=== PATIENT | female | born 1950 | race Caucasian/White ===

== ENCOUNTER → 2018-02-10 10:36 | Outpatient (CLI) | payer MEDICARE, OTHER, SELFPAY ==
[2018-02-10 11:39] LABS: Hemoglobin A1c 9.1 % (4.2-6.3)
== END ==
PROVIDERS: Family Provider Family Medicine; PCP Family Medicine; Visit Provider Nurse Practitioner
DX: E11.9 Type 2 diabetes mellitus without complications (principal)
CPT/HCPCS: 36415; 83036

== ENCOUNTER → 2018-09-14 11:06 | Outpatient (CLI) | payer MEDICARE, OTHER, SELFPAY ==
[2018-09-14 12:31] LABS: Hematocrit 39.8 % (37-47); Mean Corp Hgb Conc 32.7 g/gl (32-36); Mean Corpuscular Hgb 29.5 pg (27.0-32.0); Mean Corpuscular Volume 90.2 fL (81-99); Mean Platelet Vol. 9.9 fl (6.2-12.0); Platelet Count 222 K/mm3 (150-450); RBC Distribution Width CV 12.7 % (11.6-14.6); RBC Distribution Width SD 41.7 fl (35.1-43.9); Red Blood Count 4.41 M/mm3 (4.2-5.4)
[2018-09-14 12:38] LABS: Scan Indicated on CBC? Y/N NO
[2018-09-14 13:14] LABS: Vitamin D,25 Hydroxy 47.1 ng/mL (29.95-100.01)
[2018-09-14 13:15] LABS: AST(SGOT) 24 U/L (15-37); Alanine Aminotransfer ALT/SGPT 34 U/L (13-56); Albumin, Serum 3.7 g/dL (3.2-5.0); Alkaline Phosphatase 87 U/L (45-117); Anion Gap 11 (5-15); BUN 15 mg/dL (7-18); BUN/Creat Ratio 15.9 RATIO (10-20); Calcium,Total 8.9 mg/dL (8.5-10.1); Chloride 104 mmol/L (98-107); Creatinine, Serum 0.94 mg/dL (0.55-1.02); EST Glomerular Filtration Rate 63 mL/min (>60); Est Glom Filt Rate - Afr Amer 77 mL/min (>60); Globulin 3.7 g/dL (2.2-4.2); Glucose 179 mg/dL (74-106); Potassium 4.1 mmol/L (3.5-5.1); Protein, Total 7.4 g/dL (6.4-8.2); Sodium Level 140 mmol/L (136-145); Thyroid Stim Hormone (TSH) 2.23 uIU/mL (0.358-3.74)
== END ==
PROVIDERS: Family Provider Family Medicine; PCP Family Medicine; Referring Provider Surgery Surgical Oncology; Visit Provider Surgery Surgical Oncology
DX: E03.9 Hypothyroidism, unspecified (principal); C50.812 Malignant neoplasm of overlapping sites of left female breast; E55.9 Vitamin D deficiency, unspecified
CPT/HCPCS: 36415; 80053; 82306; 84443; 85027; 86300

== ENCOUNTER → 2019-09-19 10:15 | Outpatient (CLI) | payer MEDICARE, OTHER, SELFPAY ==
[2019-08-18 16:02] VITALS: BMI 27.1
[2019-09-19 11:10] LABS: Hematocrit 40.6 % (37-47); Hemoglobin 13.6 g/dL (12.0-15.0); Mean Corp Hgb Conc 33.5 g/dL (32-36); Mean Corpuscular Hgb 30.1 pg (27.0-32.0); Mean Corpuscular Volume 89.8 fL (81-99); Mean Platelet Vol. 9.5 fl (6.2-12.0); Platelet Count 222 K/mm3 (150-450); RBC Distribution Width CV 12.5 % (11.6-14.6); RBC Distribution Width SD 41.1 fl (35.1-43.9); Red Blood Count 4.52 M/mm3 (4.2-5.4); White Blood Count 4.9 K/mm3 (4.4-11.0)
[2019-09-19 11:39] LABS: AST(SGOT) 22 U/L (15-37); Alanine Aminotransfer ALT/SGPT 29 U/L (13-56); Albumin, Serum 3.6 g/dL (3.2-5.0); Alkaline Phosphatase 86 U/L (45-117); Anion Gap 5 (5-15); BUN 17 mg/dL (7-18); BUN/Creat Ratio 18.6 RATIO (10-20); Calcium,Total 9.1 mg/dL (8.5-10.1); Chloride 103 mmol/L (98-107); Creatinine, Serum 0.91 mg/dL (0.55-1.02); EST Glomerular Filtration Rate 65 mL/min (>60); Est Glom Filt Rate - Afr Amer 79 mL/min (>60); Globulin 3.6 g/dL (2.2-4.2); Glucose 126 mg/dL (74-106); Potassium 3.9 mmol/L (3.5-5.1); Protein, Total 7.2 g/dL (6.4-8.2); Sodium Level 136 mmol/L (136-145)
[2019-09-19 11:42] LABS: Vitamin D,25 Hydroxy 47.2 ng/mL (29.95-100.01)
[2019-09-21 13:56] LABS: CA 27.29 9.8 U/mL (0.0-38.6)
== END ==
PROVIDERS: PCP Family Medicine; Referring Provider Surgery Surgical Oncology; Visit Provider Surgery Surgical Oncology
DX: C50.812 Malignant neoplasm of overlapping sites of left female breast (principal); E55.9 Vitamin D deficiency, unspecified
CPT/HCPCS: 36415; 80053; 82306; 85027; 86300

== ENCOUNTER → 2020-10-08 10:46 | Outpatient (CLI) | payer MEDICARE, OTHER, SELFPAY ==
[2020-06-21 10:44] VITALS: BMI 28.1
[2020-10-08 12:50] LABS: Hematocrit 38.9 % (37-47); Hemoglobin 12.9 g/dL (12.0-15.0); Mean Corp Hgb Conc 33.2 g/dL (32-36); Mean Corpuscular Hgb 29.8 pg (27.0-32.0); Mean Corpuscular Volume 89.8 fL (81-99); Mean Platelet Vol. 10.2 fl (6.2-12.0); Platelet Count 257 K/mm3 (150-450); RBC Distribution Width SD 39.8 fl (35.1-43.9); Red Blood Count 4.33 M/mm3 (4.2-5.4); White Blood Count 4.7 K/mm3 (4.4-11.0)
[2020-10-08 13:19] LABS: Vitamin D,25 Hydroxy 35.6 ng/mL
[2020-10-08 13:20] LABS: ALB/GLOB Ratio 0.9 RATIO (0.9-2.4); AST(SGOT) 16 U/L (15-37); Alanine Aminotransfer ALT/SGPT 25 U/L (13-56); Albumin, Serum 3.5 g/dL (3.2-5.0); Alkaline Phosphatase 98 U/L (45-117); Anion Gap 6 (5-15); BUN 15 mg/dL (7-18); BUN/Creat Ratio 15.4 RATIO (10-20); Calcium,Total 8.8 mg/dL (8.5-10.1); Chloride 106 mmol/L (98-107); Creatinine, Serum 0.98 mg/dL (0.55-1.02); EST Glomerular Filtration Rate 60 mL/min (>60); Est Glom Filt Rate - Afr Amer 73 mL/min (>60); Globulin 3.7 g/dL (2.2-4.2); Glucose 222 mg/dL (74-106); Protein, Total 7.2 g/dL (6.4-8.2); Sodium Level 140 mmol/L (136-145)
[2020-10-09 08:15] LABS: CA 27.29 11.6 U/mL (0.0-38.6)
== END ==
PROVIDERS: PCP Family Medicine; Referring Provider Surgery Surgical Oncology; Visit Provider Surgery Surgical Oncology
DX: C50.812 Malignant neoplasm of overlapping sites of left female breast (principal); E55.9 Vitamin D deficiency, unspecified
CPT/HCPCS: 36415; 80053; 82306; 82378; 85027; 86300

== ENCOUNTER → 2021-05-22 08:52 | Outpatient (CLI) | payer MEDICARE, OTHER, SELFPAY ==
[2021-05-22 10:39] LABS: ALB/GLOB Ratio 0.9 RATIO (0.9-2.4); AST(SGOT) 18 U/L (15-37); Alanine Aminotransfer ALT/SGPT 24 U/L (13-56); Albumin, Serum 3.5 g/dL (3.2-5.0); Alkaline Phosphatase 80 U/L (45-117); Anion Gap 7 (5-15); BUN 20 mg/dL (7-18); BUN/Creat Ratio 21.3 RATIO (10-20); Calcium,Total 9.3 mg/dL (8.5-10.1); Chloride 103 mmol/L (98-107); Cholesterol 247 mg/dL (200); Creatinine, Serum 0.94 mg/dL (0.55-1.02); EST Glomerular Filtration Rate 63 mL/min (>60); Est Glom Filt Rate - Afr Amer 76 mL/min (>60); Globulin 3.9 g/dL (2.2-4.2); Glucose 82 mg/dL (74-106); High Density Lipoprotein 51 mg/dL; Potassium 3.9 mmol/L (3.5-5.1); Protein, Total 7.4 g/dL (6.4-8.2); Sodium Level 139 mmol/L (136-145); Triglycerides 234 mg/dL; Very Low Density Lipoprotein 47 mg/dL (5-40)
[2021-05-22 11:02] LABS: Vitamin B12 1259 pg/mL (211-911); Vitamin D,25 Hydroxy 47.5 ng/mL
== END ==
PROVIDERS: PCP Family Medicine
DX: E03.9 Hypothyroidism, unspecified (principal); E78.5 Hyperlipidemia, unspecified; E55.9 Vitamin D deficiency, unspecified; E53.8 Deficiency of other specified B group vitamins
CPT/HCPCS: 36415; 80053; 80061; 82306; 82607; 84443

== ENCOUNTER 2021-09-06 10:17 | Outpatient (CLI) | payer MEDICARE, OTHER, SELFPAY ==
[2021-09-06 12:56] LABS: Microalbumin,Random Urine 15.4 mg/L (NO RANGE EST.)
== END 2021-09-06 23:59 | disposition short-term general hospital (02) ==
LOC: LABSPEC 10:18
PROVIDERS: PCP Family Medicine; Referring Provider Internal Medicine Endocrinology, Diabetes & Metabolism; Visit Provider Internal Medicine Endocrinology, Diabetes & Metabolism
DX: E11.65 Type 2 diabetes mellitus with hyperglycemia (principal); Z79.4 Long term (current) use of insulin
CPT/HCPCS: 82043; 82570

== ENCOUNTER → 2021-10-10 09:45 | Outpatient (CLI) | payer MEDICARE, OTHER, SELFPAY ==
[2021-10-10 12:11] LABS: Absolute Lymphocyte Count 1.76 X10^3/uL (0.83-4.51); Basophil# 0.04 X10^3/uL; Basophil% 0.5 % (0-1); Eosinophil# 0.08 X10^3/uL; Eosinophils% 1.1 % (0-5); Hematocrit 41.9 % (37-47); Hemoglobin 13.8 g/dL (12.0-15.0); Lymphocyte # 1.76 X10^3/ul (0.83-4.51); Mean Corp Hgb Conc 32.9 g/dL (32-36); Mean Corpuscular Hgb 29.1 pg (27.0-32.0); Mean Corpuscular Volume 88.4 fL (81-99); Mean Platelet Vol. 10.2 fl (6.2-12.0); Monocyte# 0.45 X10^3/uL; Monocyte% 6.1 % (0-10); NRBC Flagged by Analyzer 0 % (0-5); Neutrophil # 4.97 X10^3/uL (2.7-7.7); Platelet Count 280 K/mm3 (150-450); RBC Distribution Width CV 12.4 % (11.6-14.6); RBC Distribution Width SD 40.3 fl (35.1-43.9); Red Blood Count 4.74 M/mm3 (4.2-5.4); White Blood Count 7.3 K/mm3 (4.4-11.0)
[2021-10-10 12:26] LABS: Vitamin D,25 Hydroxy 43.4 ng/mL
[2021-10-10 12:27] LABS: ALB/GLOB Ratio 0.9 RATIO (0.9-2.4); AST(SGOT) 18 U/L (15-37); Alanine Aminotransfer ALT/SGPT 24 U/L (13-56); Albumin, Serum 3.7 g/dL (3.2-5.0); Alkaline Phosphatase 98 U/L (45-117); Anion Gap 5 (5-15); BUN 18 mg/dL (7-18); BUN/Creat Ratio 18.8 RATIO (10-20); Calcium,Total 9.7 mg/dL (8.5-10.1); Chloride 103 mmol/L (98-107); Creatinine, Serum 0.96 mg/dL (0.55-1.02); EST Glomerular Filtration Rate 61 mL/min (>60); Est Glom Filt Rate - Afr Amer 74 mL/min (>60); Glucose 120 mg/dL (74-106); Potassium 3.8 mmol/L (3.5-5.1); Protein, Total 7.7 g/dL (6.4-8.2); Sodium Level 137 mmol/L (136-145)
[2021-10-11 09:07] LABS: CA 15-3 6.8 U/mL (0.0-25.0); Carcinoembryonic Antigen 0.7 ng/mL (0.0-4.7)
== END ==
PROVIDERS: PCP Family Medicine
DX: R53.83 Other fatigue (principal); C50.812 Malignant neoplasm of overlapping sites of left female breast; E55.9 Vitamin D deficiency, unspecified; M85.80 Other specified disorders of bone density and structure, unspecified site
CPT/HCPCS: 36415; 80053; 82306; 82378; 85025; 86300

== ENCOUNTER → 2022-09-23 | Outpatient (CLI) | payer MEDICARE, OTHER, SELFPAY ==
--- NOTE | 2022-09-23 15:07 | BI_ITS ---
MAMMOGRAPHY - BILATERAL SCREENING REASON FOR EXAM: Female, 72 years old. Routine annual screening examination. PERTINENT HISTORY: Personal history of breast cancer. Prior lumpectomy and radiation treatment. TECHNIQUE: Digital bilateral breast bradley (3D mammographic acquisition) in the CC and MLO projections. 2-D mediolateral oblique (MLO) and craniocaudad (CC) views of both breasts were obtained. CAD: Full Field Digital Mammography with Computer Added Detection was performed. COMPARISON: Comparison is made with prior outside examination dated 10/10/2021. FINDINGS: Breast Composition: The breasts are heterogeneously dense, which may obscure small masses. There are no dominant masses or suspicious calcifications. The patient is status post lumpectomy with postoperative changes in the deep inferior medial aspect of the left breast. There is overlying skin thickening. Dense dystrophic calcification is seen at that site. A surgical clip is seen in the left axillary region. Stable benign-appearing right axillary lymph nodes. No other significant abnormalities are identified. There has been no significant change since the prior study. BI/SCRN MAMM (CAD)W/BRADLEY BILAT IMPRESSION: Stable bilateral screening mammogram. Yearly follow-up mammogram recommended. (A) ASSESSMENT CATEGORY: BIRADS Category 2: Benign. A letter regarding these results will be sent to the patient by the facility within 30 days. Approximately 10% of breast cancers are not detected by mammography. A normal mammogram should not delay biopsy of a clinically suspicious abnormality. [id number] Electronically Signed: Anton Maldonado MD at 15:44 EST ,
--- NOTE | 2022-09-23 15:28 | BD_ITS ---
STUDY: DUAL ENERGY X-RAY ABSORPTIOMETRY / DXA REASON FOR EXAM: Female, 72 years old. M85.89 TECHNIQUE: Bone Mineral Density (BMD) measurements of lumbar spine and bilateral hips were obtained. COMPARISON: None. FINDINGS: Lumbar Spine (L1-L4): g/cm2 (0.857) / T-score (-1.6) / Z-score (0.5) Findings are suggestive of osteopenia with a moderate fracture risk. Left Femur Total: g/cm2 (0.921) / T-score (-0.2) / Z-score (1.3) Left Femoral Neck: g/cm2 (0.819) / T-score (-0.3) / Z-score (1.5) Right Femur Total: g/cm2 (0.952) / T-score (0.1) / Z-score (1.6) Right Femoral Neck: g/cm2 (0.877) / T-score (0.2) / Z-score (2.0) BD/Dexa Bone Density Study IMPRESSION: The patient is considered osteopenic as outlined below according to World Manuel Organization (WHO) criteria with a moderate fracture risk. Reference Information: The T-score is the number of standard deviations above or below the standard which is normal for young adults at their peak bone mineral density. The World Health Organization (WHO) interprets the T-scores as follows: Above -1 Normal bone density Between -1 and -2.5 Osteopenia Equal to / or below -2.5 Osteoporosis As a practical clinical guideline, osteopenia may be graded as follows: Mild -1 through -1.5 Moderate -1.6 through -2.0 Severe -2.1 through -2.4 The Z-score is the number of standard deviations above or below age-matched controls. A Z-score of less than -1.5 would be considered abnormal. References: 1. NIH Osteoporosis and Related Bone Diseases www osteo.org 2. International Society for Clinical Densitometry www iscd.org 3. National Osteoporosis Foundation www nof.org Electronically Signed: Anton Maldonado MD at 10:47 EST ,
[2022-09-23 16:20] LABS: Hematocrit 41.8 % (37-47); Hemoglobin 13.6 g/dL (12.0-15.0); Mean Corp Hgb Conc 32.5 g/dL (32-36); Mean Corpuscular Hgb 29.6 pg (27.0-32.0); Mean Corpuscular Volume 91.1 fL (81-99); Mean Platelet Vol. 9.8 fl (6.2-12.0); Platelet Count 278 K/mm3 (150-450); RBC Distribution Width CV 12.7 % (11.6-14.6); RBC Distribution Width SD 41.9 fl (35.1-43.9); Red Blood Count 4.59 M/mm3 (4.2-5.4); White Blood Count 6.7 K/mm3 (4.4-11.0)
[2022-09-23 16:40] LABS: Microalbumin,Random Urine 15.3 mg/L (NO RANGE EST.); Microalbumin:Creatinine Ratio 8.1 mg/g CRE (<30 mg/g CRE)
[2022-09-23 16:45] LABS: AST(SGOT) 20 U/L (15-37); Alanine Aminotransfer ALT/SGPT 28 U/L (13-56); Alkaline Phosphatase 86 U/L (45-117); Anion Gap 7 (5-15); BUN 17 mg/dL (7-18); BUN/Creat Ratio 18.1 RATIO (10-20); Calcium,Total 9.3 mg/dL (8.5-10.1); Chloride 106 mmol/L (98-107); Creatinine, Serum 0.94 mg/dL (0.55-1.02); EST Glomerular Filtration Rate 63 mL/min (>60); Est Glom Filt Rate - Afr Amer 76 mL/min (>60); Globulin 3.9 g/dL (2.2-4.2); Glucose 109 mg/dL (74-106); Potassium 3.8 mmol/L (3.5-5.1); Protein, Total 7.9 g/dL (6.4-8.2); Sodium Level 140 mmol/L (136-145); T4 Free Direct 1.25 ng/dL (0.76-1.46); Thyroid Stim Hormone (TSH) 1.07 uIU/mL (0.358-3.74)
[2022-09-23 17:09] LABS: Vitamin D,25 Hydroxy 42.9 ng/mL
[2022-09-25 19:39] LABS: CA 27.29 12.6 U/mL (0.0-38.6)
== END | disposition home or self-care (01) ==
PROVIDERS: Internal Medicine Endocrinology, Diabetes & Metabolism; Referring Provider Surgery Surgical Oncology; Visit Provider Surgery Surgical Oncology
DX: Z12.31 Encounter for screening mammogram for malignant neoplasm of breast (principal); E11.65 Type 2 diabetes mellitus with hyperglycemia; C50.812 Malignant neoplasm of overlapping sites of left female breast; Z79.4 Long term (current) use of insulin; Z13.820 Encounter for screening for osteoporosis; M85.80 Other specified disorders of bone density and structure, unspecified site; Z79.811 Long term (current) use of aromatase inhibitors; E78.2 Mixed hyperlipidemia; E66.3 Overweight; E03.8 Other specified hypothyroidism; E06.3 Autoimmune thyroiditis; I10 Essential (primary) hypertension; E55.9 Vitamin D deficiency, unspecified
CPT/HCPCS: 36415; 77063; 77067; 77080; 80053; 82043; 82306; 82570; 84439; 84443; 85027; 86300

== ENCOUNTER → 2023-10-07 | Outpatient (CLI) | payer MEDICARE, OTHER, SELFPAY ==
--- NOTE | 2023-10-07 08:11 | BI_ITS ---
MAMMOGRAPHY - BILATERAL SCREENING REASON FOR EXAM: Female, 73 years old. Routine annual screening examination. PERTINENT HISTORY: Personal history of breast cancer. Prior left lumpectomy. TECHNIQUE: Digital bilateral breast bradley (3D mammographic acquisition) in the CC and MLO projections. 2-D mediolateral oblique (MLO) and craniocaudad (CC) views of both breasts were obtained. CAD: Full Field Digital Mammography with Computer Added Detection was performed. COMPARISON: Comparison is made with prior study dated September 23, 2022. FINDINGS: Breast Composition: There are scattered areas of fibroglandular density. There are no dominant masses or suspicious calcifications. The patient is status post lumpectomy in the deep inferior central portion of the left breast with resultant postoperative changes and dystrophic calcification. A tissue clip marker is seen in the left axillary region. Stable fat-containing right axillary lymph nodes. No other significant abnormalities are identified. There has been no significant change since the prior study. BI/SCRN MAMM (CAD)W/BRADLEY BILAT IMPRESSION: Stable bilateral screening mammogram. Yearly follow-up mammogram recommended. (A) ASSESSMENT CATEGORY: BIRADS Category 2: Benign. A letter regarding these results will be sent to the patient by the facility within 30 days. Approximately 10% of breast cancers are not detected by mammography. A normal mammogram should not delay biopsy of a clinically suspicious abnormality. [id number] Electronically Signed: Anton Maldonado MD at 9:18 EST ,
--- OUTSIDE RECORDS SUMMARY | 2023-10-07 08:51 | XMS RPT_ITS | CCD ---
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 including mammogram, bone density, and labs. Patient denies any pain today. Reports that she has completed 10 years of Letrozole. Remains on her calcium with vitamin D. No other concerns voiced at this time. Surgical Oncology Clinic Note Patient: Shannan Gonzalez Sex: female Primary Care Physician: Noemi Gómez Reason for Visit: Chief Complaint Patient presents with Follow-up Left breast cancer, Tree's thyroiditis, osteopenia History of Present Illness: ANNUAL VISIT BREAST CA 2007 Review of Systems: Review of Systems - Oncology Past Medical History: Past Medical History: Diagnosis Date Breast cancer 2007 left Diabetes Tree's thyroiditis 2014 HTN (hypertension) Hyperlipidemia Hypothyroidism Obesity Osteopenia Vitamin D deficiency Past Social History: Past Surgical History: Past Surgical History: Procedure Laterality Date BREAST LUMPECTOMY Left 11/2007 Current Medications: Current Outpatient Medications Medication Sig aspirin 81 MG Chew Tab chewable tablet Chew 1 tablet daily. Calcium Carbonate-Vitamin D (CALTRATE 600+D PO) Take 1 tablet by mouth daily. Coenzyme Q10 (CoQ10) 100 MG capsule Take 1 capsule by mouth daily. cyanocobalamin 100 MCG tablet Take 10 tablets by mouth daily. gliMEPIride 4 MG tablet Take 1 tablet by mouth daily every morning. hydroCHLOROthiazide 25 MG tablet Take 1 tablet by mouth daily. Insulin Degludec (TRESIBA FLEXTOUCH SC) Inject 24 Units under the skin at bedtime. Insulin Lispro 100 UNIT/ML vial Inject 14 Units under the skin 3 times daily (take before meals). Levothyroxine 75 MCG tablet Take 1 tablet by mouth every morning before breakfast. Lisinopril 20 MG tablet Take 1 tablet by mouth daily. metformin-XR 750 MG Tab SR 24 HR tablet Take 1 tablet by mouth 3 (three) times a day. Rosuvastatin 10 MG tablet Take 1 tablet by mouth daily. Insulin Glargine (BASAGLAR KWIKPEN SC) Inject 34 Units under the skin daily. (Patient not taking: Reported on 12/31/2022) lovastatin 20 MG tablet Take 1 tablet by mouth every evening at 6 PM. One every other day (Patient not taking: Reported on 12/31/2022) Physical Exam: BP 146/81 (BP Location: Right arm, BP Position: Sitting) Pulse 75 Temp 98.1 F (36.7 C) (Infrared) Resp 14 Ht 1.575 m (5' 2 ) Wt 72.1 kg (159 lb) SpO2 97% BMI 29.08 kg/m CONSTITUTIONAL: WD,WN, NAD. Alert and oriented. Grossly neurologically intact. EYES: EOMI, lids/conjunctivae without masses or ulcerations. Sclera anicteric. NECK: Symmetric. Trachea midline. No masses. Thyroid- no enlargement or tenderness. No lymphadenopathy of cervical or clavicular region. AXILLAE: No masses or skin changes. Nontender. No lymphadenopathy RESPIRATORY: Inspection: Expands fully and symmetrically with deep inspiration Effort: No intercostal retractions or use of accessory muscles of respiration CARDIOVASCULAR: Vascular: No peripheral edema or varicosities. No JVD. ABDOMEN: Abdomen: No masses, tenderness, or hernia. Liver & spleen- no enlargement or masses. MUSCULOSKELETAL: Gait& station normal. No clubbing, cyanosis, or joint inflammation. No arm edema. SKIN: No rashes, lesions or ulcers. No indurations or subcutaneous nodules. NEUROLOGIC: No sensory or motor deficits. Normal cerebellar function. Cranial nerves intact. BREASTS: RIGHT NL, LEFT FAT NECROSIS W/ DISTORTION 6:00 STABLE, NO ADENOPATHY Imaging: Reviewed 10/09 BILAT MAMMO BIRADS 2 BONE DENSITY 10/09 -1.6 Laboratory Data: Reviewed 10/09 CBC NL, GLU 109, COMP NL, CA 27.29 12.6, VIT D 42 Pathology: Reviewed 2007 LEFT BREAST IDC T1C N0 +/+/- BCI HIGH/HIGH 11/2014 HASHIMOTOS THYROIDITIS RT LOBE Assessment and Plan: 1. REMOTE HX LEFT BREAST CA, BRANDEN 2. OSTEOPENIA, STABLE 3. VIT D 40'S PRN HERE NEEDS ANNUAL MAMMOS, Q2YR BONE DENSITY ADVISED TO INCREASE VIT D AND RESISTANCE EXERCISES Nancy Wang [place] [address] [place] [id number] . documented in this encounter [place] [employer] Work Phone: Instructions 12-31-2022 Patient Instructions Note Date & Type Note Facility 12-31-2022 Instructions Belkys Irvin RN - 12/31/2022 1:30 PM EDT Return as needed. Thank you, Belkys Irvin RN [phone] documented in this encounter [facility] [employer] Phone: Progress note 11-12-2021 Note Date & Type Note Facility 11-12-2021 Note HNO ID: [id number] Author: RT French(R) Service: ? Author Type: Technologist Type: Progress Notes Filed: 11/12/2021 1:26 PM Note Text: Radiology Service Progress Note PATIENT NAME: Shannan Gonzalez DATE OF SERVICE: November 12, 2021 TIME: 1:26 PM PATIENT IDENTITY VERIFICATION COMPLETED USING TWO (2) IDENTIFIERS: Name and Date of confirmed by patient verbally. FALL SCREENING: Has the patient had 2 falls in the last year or 1 fall with injury or currently using an Ambulatory Assistive Device (Walker, Cane, Wheelchair, Crutches, etc.)? No PATIENT GENDER DATA: Female. status: : No status: NO. PATIENT RELEVANT IMPLANT DATA REVIEWED: Not Applicable RADIOLOGY DEPARTMENT: Mammography PERIPHERAL IV DATA: Not applicable SIGNED BY: RT French(R) November 12, 2021 1:26 PM [facility] History of Present illness Narrative 11-12-2021 RT French(R) - 11/12/2021 1:30 PM EDT Note Date & Type Note Facility 11-12-2021 History of Presen t illness Narrative Radiology Service Progress Note PATIENT NAME: Shannan Gonzalez DATE OF SERVICE: November 12, 2021 TIME: 1:26 PM PATIENT IDENTITY VERIFICATION COMPLETED USING TWO (2) IDENTIFIERS: Name and Date of confirmed by patient verbally. FALL SCREENING: Has the patient had 2 falls in the last year or 1 fall with injury or currently using an Ambulatory Assistive Device (Walker, Cane, Wheelchair, Crutches, etc.)? No PATIENT GENDER DATA: Female. status: : No status: NO. PATIENT RELEVANT IMPLANT DATA REVIEWED: Not Applicable RADIOLOGY DEPARTMENT: Mammography PERIPHERAL IV DATA: Not applicable SIGNED BY: RT French(R) November 12, 2021 1:26 PM documented in this encounter [facility] Progress note 10-10-2021 Note Date & Type Note Facility 10-10-2021 Note HNO ID: [id number] Author: Adama Farooq Service: ? Author Type: Brand Marketing Manager Type: Progress Notes Filed: 10/10/2021 9:33 AM Note Text: Radiology Service Progress Note PATIENT NAME: Shannan Gonzalez DATE OF SERVICE: October 10, 2021 TIME: 9:02 AM PATIENT IDENTITY VERIFICATION COMPLETED USING TWO (2) IDENTIFIERS: Name and Date of confirmed by patient verbally. FALL SCREENING: Has the patient had 2 falls in the last year or 1 fall with injury or currently using an Ambulatory Assistive Device (Walker, Cane, Wheelchair, Crutches, etc.)? No PATIENT GENDER DATA: Female. status: : No status: NO. PATIENT RELEVANT IMPLANT DATA REVIEWED: Not Applicable RADIOLOGY DEPARTMENT: Mammography PERIPHERAL IV DATA: Not applicable SIGNED BY: Adama Farooq October 10, 2021 9:02 AM [facility] History of Past illness Narrative 08-05-2017 Note Date & Type Note Facility documented as of this encounter (statuses as of 11/13/2021) [facility] History of Past illness Narrative 08-05-2017 Note Date & Type Note Facility documented as of this encounter (statuses as of 11/18/2021) [facility] History of Past illness Narrative 08-05-2017 Note Date & Type Note Facility documented as of this encounter (statuses as of 05/15/2022) [facility] Evaluation note Note Date & Type Note Facility documented in this encounter [employer] Phone: Summary Purpose Family History Diabetes Mellitus Status:Active Comments:Pater nal Grandmother. Heart Disease Status:Active Comments:Mother. Father. Hypertension Status:Active Comments:Mother. Father. Osteoarthritis Status:Active Comments:Father. Osteoporosis Status:Active Comments:Mother. 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 Advance Directive(s) 07/18/2013 7:19 AM Additional Source Comments INFORMATION SOURCE (unrecogn ized section and content) DATE CREATED AUTHOR AUTHOR'S ORGANIZ ATION 05/27/2019 [facility] DATE CREATED AUTHOR AUTHOR'S ORGANIZ ATION 05/19/2022 [facility] DATE CREATED AUTHOR AUTHOR'S ORGANIZ ATION 06/01/2023 [facility] Source Comments (unrecognize d section and content) In the event this informatio n is protected by the Federal Confidentiality of Alcohol and Drug Abuse Patient Records regulations: The Federal rules restrict any use of the information to criminally investigate or prosecute any alcohol or drug abuse patient.[facility] the event this information is protected by the Federal Confidentiality of Alcohol and Drug Abuse Patient Records regulations: The Federal rules restrict any use of the information to criminally investigate or prosecute any alcohol or drug abuse patient.[facility] the event this information is protected by the Federal Confidentiality of Alcohol and Drug Abuse Patient Records regulations: The Federal rules restrict any use of the information to criminally investigate or prosecute any alcohol or drug abuse patient.[facility] Care Teams (unrecognized sec tion and content) Home Appliance Tech Relationship Specialty Start Date End Date Naya Munoz [address] [place] [address] PCP - General 06/18/04 Home Appliance Tech Relationship Specialty Start Date End Date Naya Munoz [address] [place], [place] [id number] PCP - General 06/18/04 Home Appliance Tech Relationship Specialty Start Date End Date Noemi Gómez PA-C [address] [place] [place] [id number] PCP - General Physician Ink Technician 12/31/22 Reason for Visit (unrecogniz ed section and content) FOR RECORDS PERTAINING TO PATIENTS WHO ARE OR HAVE BEEN ENROLLED IN A CHEMICAL DEPENDENCY/SUBSTANCEABUSE PROGRAM, SOME INFORMATION MAY BE OMITTED. This clinical summary was aggregated from multiple sources. Caution should be exercised in using it in the provision of clinical care. This summary normalizes information from multiple sources, and as a consequence, information in this document may materially change the coding, format and clinical context of patient data. In addition, data may be omitted in some cases. CLINICAL DECISIONS SHOULD BE BASED ON THE PRIMARY CLINICAL RECORDS. [facility]. provides no warranty or guarantee of the accuracy or completeness of information in this document.
== END | disposition home or self-care (01) ==
LOC: OPBI 08:10
DX: Z12.31 Encounter for screening mammogram for malignant neoplasm of breast (principal); Z85.3 Personal history of malignant neoplasm of breast
CPT/HCPCS: 77063; 77067

== ENCOUNTER 2023-11-25 06:57 | Day surgery (SDC) | payer MEDICARE, OTHER, SELFPAY ==
[2023-11-25] VITALS (7 sets, daily range): BP systolic 102–134; BP diastolic 47–66; PULSE 65–77; RESP 16–17; TEMP 35.9–36.6; O2SAT 93–98; BMI 27.3
[2023-11-25] MEDS: Lactated Ringers 1,000 ML 15 ML IV (07:27)
[2023-11-25 07:33] LABS: Bedside Glucose 146 mg/dL (74-106)
--- NOTE | 2023-11-25 08:01 | HP.PCM_ITS ---
[facility] - General General Date of Service: 11/25/23 HPI Narrative QAMAR HOBBS, is a 73 F who presents for screening colonoscopy. Patient last colonoscopy was in [address] Whyte at [facility] negative except for hemorrhoids per patient. Patient denies any family history of colon cancer. Patient has bowel movements daily denies any blood. Patient denies any chronic abdominal pain/nausea/vomiting/reflux. [facility] Medical History Age-related cataract of both eyes Alcohol use Arthritis Breast cancer Cancer Dietary restriction High cholesterol High triglycerides History of edema HTN (hypertension) Hypothyroidism Insulin dependent diabetes mellitus Leg cramps Non-smoker Nonproliferative diabetic retinopathy of right eye Osteopenia Post-menopausal Proteinuria Syncope Vitreous floaters of both eyes Wears glasses Home Medications aspirin 81 mg chewable tablet 81 mg PO QDAY 01/12/18 [History Last Taken 11/24/23] calcium carb 300 mg-D3 20 mcg-mag ox 25 mg-[employer] helicopter 0.5 ms-baix-oogr tablet (Caltrate-D3 Plus Minerals) 1 tab PO QDAY 01/12/18 [History Last Taken 11/24/23] cholecalciferol (vitamin D3) 25 mcg (1,000 unit) capsule 1,000 unit PO QDAY 01/12/18 [History Last Taken 11/24/23] coenzyme Q10 75 mg capsule (Ultra CoQ10) 75 mg PO QDAY 01/12/18 [History Last Taken 11/24/23] cyanocobalamin (vitamin B-12) 5,000 mcg sublingual tablet (Vitamin B-12) 1,000 mcg sublingual DAILY 10/19/20 [History Last Taken 11/24/23] hydrochlorothiazide 25 mg tablet 25 mg PO QDAY #90 tabs 05/16/22 [Rx Last Taken 11/24/23] levothyroxine 75 mcg tablet (Synthroid) 75 mcg PO QDAY #90 tabs 06/22/23 [Rx Last Taken 11/25/23] lisinopril 20 mg tablet 20 mg PO QDAY #90 tabs 06/22/23 [Rx Last Taken 11/25/23] metformin 750 mg tablet,extended release 24 hr 750 mg PO BID #180 tabs 06/22/23 [Rx Last Taken 11/24/23] rosuvastatin 10 mg tablet 10 mg PO DAILY #90 tabs 06/22/23 [Rx Last Taken 11/24/23] glimepiride 4 mg tablet 4 mg PO DAILY #90 tabs 10/19/23 [Rx Last Taken 11/24/23] insulin degludec 100 unit/mL (3 mL) subcutaneous pen (Tresiba FlexTouch U-100 insulin) 20 unit subcut QHS 11/24/23 [History Last Taken 11/24/23] insulin lispro 100 unit/mL subcutaneous pen (Humalog KwikPen (U-100) Insulin) 16 unit subcut TID 11/24/23 [History Last Taken 11/24/23] Allergy/AdvReac Type Severity Reaction Status Date / Time No Known Allergies Allergy Verified 11/25/23 07:03 Family History Grandmother Diabetes Sister Diabetes Mother Heart disease Hypertension High cholesterol Osteoporosis Father Heart disease Surgical History H/O lumpectomy Hx of colonoscopy Hx of dilation and curettage S/P thyroid biopsy Social History household members: spouse current occupational status: employed current occupation: [employer] Smoking Status: Never smoker second hand exposure: No details: Occasional alcohol substance use type: does not use Past Medical/Surgical History Planned Operation Planned Operative Procedure/s: CSCOPE OA Previous Hospitalizations/Surgeries HX Hospitalizations: No Any Problems With Anesthesia: No You/Your Family Experience Fever (Hyperthermia) With Anes: No Cholinesterase deficiency: No Cardiovascular Hx Hypertension: Yes (CONTROLLED WITH MEDS) Respiratory Hx Asthma: No Hx Emphysema: No Hx Sleep Apnea: No Hx Respiratory Tract Infection/Cold (presently): No Do You Snore Loudly (louder than talking or can be heard): No Do You Often Feel Tired/ Fatigued/ Sleepy Dring Daytime?: No Has Anyone Observed You Stop Breathing During Sleep?: No Result (for STOP score): Negative Smoking Status: Never smoker Gastrointestinal Special diet followed at home: No Neurological Hx Seizures: No Does patient have nerve stimulator: No Reproduction : No Miscellaneous Recent Exposure to Contagious Disease: No Allergies No Known Allergies Allergy (Verified 11/25/23 07:03) Discharge Is Pt Admitted From a Assisted, or a Half-Way: No After D/C, Where Do you Plan to Go: Return Home Vital Signs Vital Signs Vital Signs: 11/25/23 07:24 11/25/23 07:24 Temperature 97.6 F L Temperature Source Temporal Pulse Rate 71 Respiratory Rate 17 Respiratory Pattern Normal Blood Pressure 128/66 H Blood Pressure Mean 86 Blood Pressure Source Monitor Blood Pressure Position Semi-Fowlers Blood Pressure Location Left Arm Pulse Ox 97 Oxygen Delivery Method Room Air Weight Weight: 149 lb 14.629 oz Body Mass Index (BMI) 27.3 Physical Exam Const alert, oriented x3 and no apparent distress HEENT normocephalic and head/scalp atraumatic Resp normal respiratory effort Cardio regular rate GI soft to palpation and non-tender; Negative for non-distended Palpation: Negative for guarding Extremity no clubbing, cyanosis or edema Skin no rashes or lesions noted Neuro CN's II-XII intact bilaterally Psych mental status grossly normal Assessment & Plan Assessment/Plan (1) Encounter for screening for malignant neoplasm of colon: Surgery Risks - Colonoscopy I discussed with the patient the risks of the procedure: Yes Risks Include but are not Limited To: Risks include but are not limited to: Bleeding, perforation requiring further surgery, inability to complete colonoscopy requiring barium enema.
--- NOTE | 2023-11-25 08:45 | OP.COLON_ITS ---
Patient Name: Shannan Gonzalez Procedure Date: 11/25/2023 8:11 AM Date of : 1950 Age: 73 Procedure: Colonoscopy Indications: Screening for colorectal malignant neoplasm Providers: Jayde Arango MD Medicines: Monitored Anesthesia Care Patient Profile: This is a 73 year old female. Last Colonoscopy: 2012. Complications: No immediate complications. Procedure: Pre-Anesthesia Assessment: - Prior to the procedure, a History and Physical was performed, and patient medications and allergies were reviewed. The patient's tolerance of previous anesthesia was also reviewed. The risks and benefits of the procedure and the sedation options and risks were discussed with the patient. All questions were answered, and informed consent was obtained. Prior Anticoagulants: The patient has taken no anticoagulant or antiplatelet agents. ASA Grade Assessment: Per anesthesia. After reviewing the risks and benefits, the patient was deemed in satisfactory condition to undergo the procedure. After I obtained informed consent, the scope was passed under direct vision. Throughout the procedure, the patient's blood pressure, pulse, and oxygen saturations were monitored continuously. The Colonoscope was introduced through the anus and advanced to the cecum, identified by appendiceal orifice and ileocecal valve. The colonoscopy was performed without difficulty. The patient tolerated the procedure well. The quality of the bowel preparation was good. Scope In: 8:21:43 AM Scope Withdrawal Time 0 hours 9 minutes 7 seconds Scope Out: 8:35:56 AM Total Procedure Duration Time 0 hours 14 minutes 13 seconds Findings: Hemorrhoids were found on perianal exam. Non-bleeding external and internal hemorrhoids were found. The hemorrhoids were small and Grade I (internal hemorrhoids that do not prolapse). The entire examined colon appeared normal. Impression: - Hemorrhoids found on perianal exam. - Non-bleeding external and internal hemorrhoids. - The entire examined colon is normal. - No specimens collected. Recommendation: - Discharge patient to home. - Resume previous diet. - Continue present medications. - Repeat colonoscopy in 10 years depending on overall health at that time. Procedure Code(s): --- Professional --- G0121, PT, Colorectal cancer screening; colonoscopy on individual not meeting criteria for high risk Diagnosis Code(s): --- Professional --- Z12.11, Encounter for screening for malignant neoplasm of colon K64.0, First degree hemorrhoids CPT copyright 2021 [employer]. All rights reserved. The codes documented in this report are preliminary and upon clinic mgr review may be revised to meet current compliance requirements. MD Jayde Li MD 11/25/2023 8:44:59 AM This report has been signed electronically. Number of Addenda: 0 Note Initiated On: 11/25/2023 8:11 AM
--- NOTE | 2023-11-25 08:45 | OP.CCLET_ITS ---
11/25/2023 Roger Berrios Re : Colonoscopy procedure for Shannan Gómez This procedure was performed on Saturday, November 25, 2023. My impressions and recommendations are as follows: Impressions : - Hemorrhoids found on perianal exam. - Non-bleeding external and internal hemorrhoids. - The entire examined colon is normal. - No specimens collected. Recommendations : - Discharge patient to home. - Resume previous diet. - Continue present medications. - Repeat colonoscopy in 10 years depending on overall health at that time. My findings are described in the full procedure note, which is enclosed. If I can be of further assistance, please feel free to contact me at Doctor phone number(s): , Work: . Sincerely, MD Jayde Li MD 11/25/2023 8:44:59 AM This report has been signed electronically.
== END 2023-11-25 09:37 | disposition home or self-care (01) ==
LOC: EN 06:58 → AC 06:59
PROVIDERS: Visit Provider Surgery
PROC: 0DJD8ZZ Inspection of Lower Intestinal Tract, Via Natural or Artificial Opening Endoscopic (ICD-10-PCS; CPT 45378; principal; 2023-11-25 08:10)
DX: Z12.11 Encounter for screening for malignant neoplasm of colon (principal); E11.9 Type 2 diabetes mellitus without complications; Z79.4 Long term (current) use of insulin; I10 Essential (primary) hypertension; Z79.82 Long term (current) use of aspirin; E78.00 Pure hypercholesterolemia, unspecified; K64.0 First degree hemorrhoids
CPT/HCPCS: G0121; 82962; J7120; J2405

== ENCOUNTER → 2024-02-29 | Outpatient (CLI) | payer MEDICARE, OTHER, SELFPAY ==
--- NOTE | 2024-02-29 10:51 | US_ITS ---
STUDY: ULTRASOUND BREAST - RIGHT REASON FOR EXAM: Female, 73 years old. Palpable lump in the right axilla. Personal history of left breast cancer with lumpectomy. TECHNIQUE: Axial and longitudinal images of the RIGHT breast were performed with a high resolution ultrasound transducer. # OF IMAGES: 44 COMPARISON: Comparison is made with prior mammogram done earlier today. FINDINGS: RIGHT Breast: The right axilla was examined with ultrasound. There is a 5.3 mm x 4.1 mm x 4.7 mm cyst at 1:00 position of the breast at 13 cm from nipple. There are several nondescript heterogeneous densities in the right axilla. Correlation with MRI recommended. US/Breast Limited Unilateral IMPRESSION: 5.3 mm x 4.1 mm x 4.7 mm cyst at the 1:00 position of the breast at 13 cm from the nipple. There are several non well descriptive solid nodules in the left axilla. Correlation with MRI is recommended. ASSESSMENT CATEGORY: BIRADS Category 0: Incomplete. Need additional imaging evaluation. A letter regarding these results will be sent to the patient by the facility within 30 days. Electronically Signed: Anton Maldonado MD at 12:53 EDT ,
--- NOTE | 2024-02-29 12:02 | BI_ITS ---
MAMMOGRAPHY - UNILATERAL DIAGNOSTIC: RIGHT BREAST REASON FOR EXAM: Female, 73 years old. Right breast lump. PERTINENT HISTORY: Personal history of breast cancer. Prior left lumpectomy. TECHNIQUE: Digital unilateral breast ryann (3D mammographic acquisition) in the CC and MLO projections. 2-D mediolateral oblique (MLO) and craniocaudad (CC) views of both breasts were obtained. CAD: Full Field Digital Mammography with Computer Added Detection was performed. COMPARISON: Comparison is made with prior study dated October 07, 2023. FINDINGS: Breast Composition: There are scattered areas of fibroglandular density. There are no dominant masses or suspicious calcifications. Stable fat-containing right axillary lymph node. No other significant abnormalities are identified. There has been no significant change since the prior study. BI/DIAG MAMM W/CAD, UNILAT IMPRESSION: Stable unilateral diagnostic mammogram. With the patient''s history of a palpable lump in the axillary region of the right breast, correlation with ultrasound is recommended. ASSESSMENT CATEGORY: BIRADS Category 0: Incomplete. Need additional imaging evaluation. A letter regarding these results will be sent to the patient by the facility within 30 days. Approximately 10% of breast cancers are not detected by mammography. A normal mammogram should not delay biopsy of a clinically suspicious abnormality. Electronically Signed: Anton Maldonado MD at 12:50 EDT ,
== END | disposition home or self-care (01) ==
LOC: OPUS 10:49
DX: N63.11 Unspecified lump in the right breast, upper outer quadrant (principal)
CPT/HCPCS: 76642; 77061; 77065; G0279

== ENCOUNTER → 2024-03-24 | Outpatient (CLI) | payer MEDICARE, OTHER, SELFPAY ==
--- NOTE | 2024-03-24 13:45 | MRI_ITS ---
STUDY: BILATERAL BREAST MR WITHOUT AND WITH CONTRAST REASON FOR EXAM: Female, 73 years old. Lump in upper quadrant of right breast. Personal history of breast cancer status post lumpectomy and age 58. TECHNIQUE: Multi-sequence multi-echo imaging of both breasts was performed with a dedicated breast coil. T1-weighted and T2-weighted images were performed before the administration of contrast. T1-weighted images were also performed after the intravenous administration of 13ml of Clariscan contrast. COMPARISON: Bilateral mammogram dated October 07, 2023, right mammogram and right breast ultrasound dated March 01, 2020. FINDINGS: RIGHT BREAST: Predominantly fatty replaced breast with minimal background enhancement. No abnormal enhancing masses or areas of non-mass enhancement in the right breast. LEFT BREAST: Predominantly fatty replaced breasts with minimal background enhancement. Post-lumpectomy changes in the left breast at the 6:00 position with scarring, skin thickening and fat necrosis calcifications seen on the mammogram. No abnormal enhancing masses or areas of non-mass enhancement in the left breast. Multiple small lymph nodes in the left axilla with normal morphology. At least 2 nodes in the right axilla, the largest of which measures 14 mm in diameter but has a large fatty hilum. No abnormality in the visualized regions of the chest or liver. MRI/Breast Bilateral W/O and W IMPRESSION: Postlumpectomy changes in the left breast as described. No abnormal enhancing masses in either breast. Slightly enlarged right axillary lymph node with normal morphology on MR. CATEGORY: BIRADS Category 2: Benign. A letter regarding these results will be sent to the patient by the facility within 30 days. Electronically Signed: Santosh Diaz MD at 10:05 EDT ,
[2024-03-24 13:55] LABS: CREATININE FINGERSTICK < 1.0 mg/dL (0.55-1.02); EGFR FINGERSTICK > 60.0000 mL/min (>60)
== END | disposition home or self-care (01) ==
LOC: MRI 13:20
DX: N63.11 Unspecified lump in the right breast, upper outer quadrant (principal)
CPT/HCPCS: 77049; A9575; A4216; C8908

== ENCOUNTER → 2024-04-13 | Outpatient (CLI) | payer MEDICARE, OTHER, SELFPAY ==
[2024-04-13 11:47] LABS: ALB/GLOB Ratio 1.1 RATIO (0.9-2.4); AST(SGOT) 19 U/L (15-37); Alanine Aminotransfer ALT/SGPT 18 U/L (13-56); Albumin, Serum 3.9 g/dL (3.2-5.0); Alkaline Phosphatase 79 U/L (45-117); Anion Gap 5 (5-15); BUN 19 mg/dL (7-18); Calcium,Total 9.2 mg/dL (8.5-10.1); Chloride 101 mmol/L (98-107); Cholesterol 162 mg/dL (200); EST Glomerular Filtration Rate 58 mL/min (>60); Est Glom Filt Rate - Afr Amer 70 mL/min (>60); Globulin 3.6 g/dL (2.2-4.2); Glucose 149 mg/dL (74-106); High Density Lipoprotein 67 mg/dL; Potassium 4.2 mmol/L (3.5-5.1); Protein, Total 7.5 g/dL (6.4-8.2); Sodium Level 135 mmol/L (136-145); T4 Free Direct 1.22 ng/dL (0.76-1.46); Triglycerides 126 mg/dL; Very Low Density Lipoprotein 25 mg/dL (5-40)
[2024-04-13 11:56] LABS: Microalbumin,Random Urine < 5.0 mg/L (NO RANGE EST.)
== END | disposition home or self-care (01) ==
LOC: LAB 10:46
PROVIDERS: Referring Provider Internal Medicine Endocrinology, Diabetes & Metabolism; Visit Provider Internal Medicine Endocrinology, Diabetes & Metabolism
DX: I10 Essential (primary) hypertension (principal); E11.9 Type 2 diabetes mellitus without complications; E78.5 Hyperlipidemia, unspecified; E03.8 Other specified hypothyroidism; E06.3 Autoimmune thyroiditis; R80.9 Proteinuria, unspecified; E66.3 Overweight; E55.9 Vitamin D deficiency, unspecified
CPT/HCPCS: 36415; 80053; 80061; 82043; 82306; 82570; 84439; 84443

== ENCOUNTER → 2025-03-30 | Outpatient (CLI) | payer MEDICARE, OTHER, SELFPAY ==
--- NOTE | 2025-03-30 08:11 | BI_ITS ---
EXAM: SCRN MAMM (CAD)W/BRADLEY BILAT DATE: 03/30/2025 CLINICAL HISTORY: F, Age 74 y/o , SCREENING Personal history of breast cancer. Prior left lumpectomy with radiation treatment. TECHNIQUE: SCRN MAMM (CAD)W/BRADLEY BILAT COMPARISON: Prior exam(s) dated February 29, 2024.. FINDINGS: TISSUE DENSITY: The breasts are heterogeneously dense, which may obscure small masses. Bilateral Breast Mammographic Findings: No significant masses, calcifications or other abnormalities are identified. Status post lumpectomy in the deep central inferior aspect of the left breast with resultant dystrophic calcification and postoperative scarring. Surgical clips are seen in the left axilla. No suspicious masses, areas of developing architectural distortion, or suspicious calcifications. There has been no significant interval change. BI/SCRN MAMM (CAD)W/BRADLEY BILAT IMPRESSION: Stable examination. OVERALL FINAL ASSESSMENT BI-RADS 2: BENIGN RECOMMENDATION: Routine annual follow-up in 1 Year A letter with findings and recommendations will be mailed to the patient. Reading Location: [place] [id number]
== END | disposition home or self-care (01) ==
LOC: OPBI 08:10
DX: Z12.31 Encounter for screening mammogram for malignant neoplasm of breast (principal); Z85.3 Personal history of malignant neoplasm of breast; Z92.3 Personal history of irradiation
CPT/HCPCS: 77063; 77067

== ENCOUNTER → 2025-05-25 | Outpatient (CLI) | payer MEDICARE, OTHER, SELFPAY ==
[2025-05-25 11:01] LABS: AST(SGOT) 22 U/L (<=31); Alanine Aminotransfer ALT/SGPT 15 U/L (<=34); Albumin, Serum 4.1 g/dL (3.4-4.8); Alkaline Phosphatase 85 U/L (35-104); Anion Gap 10 (5-15); BUN 19 mg/dL (4-19); BUN/Creat Ratio 18.7 RATIO (10-20); Calcium,Total 9.4 mg/dL (7.6-11.0); Carbon Dioxide 26.7 mmol/L (21.0-32.0); Chloride 101 mmol/L (98-108); Cholesterol 149 mg/dL (<=200); Globulin 2.8 g/dL (2.2-4.2); Glucose 166 mg/dL (70-99); Low Density Lipoprotein Calc. 60 mg/dL; Potassium 4.2 mmol/L (3.3-5.1); Triglycerides 134 mg/dL; Very Low Density Lipoprotein 27 mg/dL (5-40); cholesterol:hdl ratio screen 2.39
[2025-05-26 04:07] LABS: CA 15-3 8.4 U/mL (0.0-25.0); Carcinoembryonic Antigen 0.9 ng/mL (0.0-4.7)
== END | disposition home or self-care (01) ==
LOC: LAB 09:10
DX: E03.9 Hypothyroidism, unspecified (principal); E11.69 Type 2 diabetes mellitus with other specified complication; E78.5 Hyperlipidemia, unspecified; Z85.3 Personal history of malignant neoplasm of breast
CPT/HCPCS: 36415; 80053; 80061; 82378; 83036; 84443; 86300